=== PATIENT | female | born 1955 | race Caucasian/White ===

== ENCOUNTER 2017-08-16 02:24 | Observation (INO) ==
--- NOTE | 2017-08-16 02:43 | Emergency Department Note ---
Disposition Clinical Impression: Paroxysmal atrial fibrillation with RVR Disposition: Admitted As Inpatient Referrals: Talat Vick MD [Primary Care Provider] - Forms: ED Satisfaction Letter Time of Disposition: 03:58 Arrhythmia/Palpitations HPI - General Chief Complaint: ED Arrhythmia/Palpitations Stated Complaint: heart problem Time Seen by Provider: 08/16/17 02:30 Source: patient Mode of arrival: ambulatory Limitations: no limitations Nursing Notes Reviewed: Yes Vital Signs Reviewed: Yes - History of Present Illness HPI Narrative: Awoke suddenly from sleep just prior to admission with feeling of her racing fast and irregular, denies CP, one other episode years ago, converted on own Pt Subjective Complaint: "heart racing", palpitations, irregular heart beat 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 (ago): 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 Cardiovascular: Reports: palpitations. 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 Skin color is pink. Appears well hydrated, body habitus normal . Non toxic appearing. Head: Normocephalic and atraumatic. External ear exam normal Nose: Nose normal. Mouth/Throat: Uvula is midline, oropharynx is clear and moist and mucous membranes are normal. Eyes: Conjunctivae nl, extraocular motions and lids are normal. Pupils are equal , round, and reactive to light. Neck: Normal range of motion and phonation normal. Neck supple. Cardiovascular: Rapid rate. Irregularly irregular rhythm, no murmur .normal heart sounds. Pulmonary/Chest: No Respiratory distress. Respiratory Effort normal and breath sounds clear no wheezing. Abdominal: Soft. Normal appearance and bowel sounds are normal. no tenderness, no masses, no guarding, no rebound Musculoskeletal: Good distal pulses. Soft compartments. Brisk cap refill. Extremities: Normal range of motion.Intact peripheral pulses. No Edema. Extremity skin color nl, no calf tenderness or palpable cords. Neurological: Patient is alert and oriented without evidence of obvious motor deficits no facial droop. No speech deficit. Good strength 4 extremities. Skin: Skin is warm, dry and intact. color is normal, cap refill is quick Psychiatric: Patient has anxious mood and affect. Patient speech is normal and behavior is normal. Thought content normal. - General Limitations: no limitations General appearance: alert, in no apparent distress Course - Reevaluation(s) Reevaluation #1: Soon after the bolus of Cardiazem bolus and the infusion had been initiated, heart rate decreased to 80s but several very long pauses. Remains in atrial flutter. Infusion was discontinued. Patient feels well. No lightheadedness. Still feels the irregular beats but feels better because her heart rate is slower she says. Heart rate remains variable I disc case w/ dr Choi cardiology and he indicates that since she remains in a fib and has the pauses, pt requires admission for monitoring and conversion to sinus [facility] campus is full and pt is resistant to transfer to another facility. We discussed the possibility of admitting the patient here with anticoagulants and oral antiarrhythmics and monitoring with possibility of moving her to maintain campuses if necessary later in the day i disc plan w/ pt , she has no risk factors for anticoagulation. will disc w/ dr Hanley. Time: 03:40 Reevaluation #2: disc case w/ dr Vick who is willing to accept pt for admission here for monitoring and oral cardiazem. he suggests xarelto. she is feeling well and comfortable w/ that plan. Time: 03:59 Vital Signs Temperature 97.6 F 08/16/17 02:29 Pulse Rate 99 08/16/17 02:29 Respiratory Rate 18 08/16/17 02:29 Blood Pressure 144/92 08/16/17 02:29 O2 Sat by Pulse Oximetry 98 08/16/17 02:29 Temperature 97.6 F 08/16/17 02:34 Pulse Rate 77 08/16/17 03:17 Respiratory Rate 18 08/16/17 03:17 Blood Pressure 104/68 08/16/17 03:17 O2 Sat by Pulse Oximetry 93 08/16/17 03:17 Oxygen Delivery Oxygen Delivery Room Air Arrhythmia/Palpitations - Differential Diagnosis Differential Diagnosis: Likely: palpitations, anxiety, sinus tachycardia, artial arrhythmia, ventricular premature beats, supraventricular tachycardia, ventricular tachycardia, metabolic/electrolyte disturbance - Lab Data Result diagrams: 08/16/17 02:50 08/16/17 02:50 Lab Results 08/16/17 08/16/17 08/16/17 Range/Units 02:50 02:50 02:50 WBC 6.2 (4.3-11.1) K/mcL RBC 4.33 (3.82-4.97) M/mcL Hgb 13.4 (11.5-15.4) g/dL Hct 39.1 (35.3-44.9) % MCV 90.3 (83.0-100.0) fL MCH 30.9 (28.0-33.3) pg MCHC 34.3 (31.6-35.5) g/dL RDW 13.5 (11.5-14.5) % Plt Count 224 (140-400) K/mcL MPV 10.2 (9.4-12.4) fL Immature Gran % 0.2 (0-4) % Seg Neutrophils % 46.3 % Lymphocytes % 41.3 % Monocytes % 7.1 % Eosinophils % 4.5 % Basophils % 0.6 % Neutrophils # 2.9 (1.6-8.9) K/mcL Lymphocytes # 2.6 (0.6-4.6) K/mcL Monocytes # 0.4 (0.0-1.3) K/mcL Eosinophils # 0.3 (0.0-0.6) K/mcL Basophils # 0.0 (0.0-0.2) K/mcL PT 9.9 (9.4-12.1) Seconds INR 0.9 APTT 30.9 (26.0-36.0) Seconds D-Dimer 354 (0-500) ng/mLFEU Sodium 143 (136-145) mEq/L Potassium 3.8 (3.5-4.5) mEq/L Chloride 107 (98-109) mEq/L Carbon Dioxide 25 (19-29) mEq/L BUN 16 (7-20) mg/dL Creatinine 0.72 (0.57-1.11) mg/dL Est GFR ( Amer) > 60 (> 60) Est GFR (Non-Af Amer) > 60 (> 60) BUN/Creatinine Ratio 22 (6-26) Glucose 109 H (70-99) mg/dL Calculated Osmolality 298 (280-300) Calcium 9.1 (8.6-10.8) mg/dL Troponin I (0-0.03) ng/mL 08/16/17 Range/Units 02:50 WBC (4.3-11.1) K/mcL RBC (3.82-4.97) M/mcL Hgb (11.5-15.4) g/dL Hct (35.3-44.9) % MCV (83.0-100.0) fL MCH (28.0-33.3) pg MCHC (31.6-35.5) g/dL RDW (11.5-14.5) % Plt Count (140-400) K/mcL MPV (9.4-12.4) fL Immature Gran % (0-4) % Seg Neutrophils % % Lymphocytes % % Monocytes % % Eosinophils % % Basophils % % Neutrophils # (1.6-8.9) K/mcL Lymphocytes # (0.6-4.6) K/mcL Monocytes # (0.0-1.3) K/mcL Eosinophils # (0.0-0.6) K/mcL Basophils # (0.0-0.2) K/mcL PT (9.4-12.1) Seconds INR APTT (26.0-36.0) Seconds D-Dimer (0-500) ng/mLFEU Sodium (136-145) mEq/L Potassium (3.5-4.5) mEq/L Chloride (98-109) mEq/L Carbon Dioxide (19-29) mEq/L BUN (7-20) mg/dL Creatinine (0.57-1.11) mg/dL Est GFR ( Amer) (> 60) Est GFR (Non-Af Amer) (> 60) BUN/Creatinine Ratio (6-26) Glucose (70-99) mg/dL Calculated Osmolality (280-300) Calcium (8.6-10.8) mg/dL Troponin I 0.01 (0-0.03) ng/mL - EKG Data EKG attestation: Yes I reviewed and interpreted this EKG. EKG results narrative: Atrial fib with RVR rate of 1:[address] acute [address]-T wave changes.
[2017-08-16] MEDS ORDERED: dilTIAZem HCl 100 MG in D5% in Water 50 ML IVC SCH (02:45)
[2017-08-16 02:55] LABS: Basophils % 0.6 %; Eosinophils # 0.3 K/mcL (0.0-0.6); Eosinophils % 4.5 %; Hematocrit 39.1 % (35.3-44.9); Hemoglobin 13.4 g/dL (11.5-15.4); Immature Granulocytes % 0.2 % (0-4); Lymphocytes # 2.6 K/mcL (0.6-4.6); Lymphocytes % 41.3 %; Mean Corpuscular HGB Conc 34.3 g/dL (31.6-35.5); Mean Corpuscular Hemoglobin 30.9 pg (28.0-33.3); Mean Corpuscular Volume 90.3 fL (83.0-100.0); Mean Platelet Volume 10.2 fL (9.4-12.4); Monocytes # 0.4 K/mcL (0.0-1.3); Monocytes % 7.1 %; Neutrophils # 2.9 K/mcL (1.6-8.9); Platelet Count 224 K/mcL (140-400); Red Blood Count 4.33 M/mcL (3.82-4.97); Red Cell Distribution Width 13.5 % (11.5-14.5); Segmented Neutrophils % 46.3 %
[2017-08-16 02:59] LABS: INR 0.9; Prothrombin Time 9.9 Seconds (9.4-12.1)
[2017-08-16 03:02] LABS: Activated Partial Thrombo Time 30.9 Seconds (26.0-36.0)
[2017-08-16] MEDS: 0.9 % Sodium Chloride 1,000 ML IVC ONE (03:05)
[2017-08-16 03:08] LABS: BUN/Creatinine Ratio 22 (6-26); Blood Urea Nitrogen 16 mg/dL (7-20); Calcium 9.1 mg/dL (8.6-10.8); Carbon Dioxide 25 mEq/L (19-29); Chloride 107 mEq/L (98-109); Glucose 109 mg/dL (70-99); Osmolality,Calculated 298 (280-300); Potassium 3.8 mEq/L (3.5-4.5); Sodium 143 mEq/L (136-145); eGFR For African Americans > 60 (> 60); eGFR For Non-African Americans > 60 (> 60)
[2017-08-16] MEDS: *HR* Digoxin 0.5 MG/2 ML AMPUL IVP ONE (04:03)
[2017-08-16] MEDS ORDERED: Naloxone 0.4 MG/ML INJ IVP PRN (05:13)
[2017-08-16] MEDS ORDERED: Acetaminophen 325 MG TABLET PO PRN (05:13)
[2017-08-16] MEDS: *HR* Rivaroxaban 10 MG TABLET PO ONE (06:13)
[2017-08-16] MEDS: 0.9 % Sodium Chloride 1,000 ML IVC SCH (06:14)
[2017-08-16 08:57] LABS: Thyroid Stimulating Hormone 2.814 mcIU/mL (0.350-4.840)
--- NOTE | 2017-08-16 09:10 | Internal Med History&Physical ---
Date of Encounter: 08/16/17 Time of Encounter: 09:10 Assessment and Plan (1) Atrial fibrillation with RVR Status: Acute Patient admitted to an observation bed with A. fib with RVR, this is the second recurrence. She broke through on beta rei use. She is having no angina. Troponins are negative. Thyroid blood work ordered. She is now converted to normal sinus rhythm. We will continue the beta rei, continue the Cardizem by mouth, anticoagulate with Xarelto until we find if she is going in and out of atrial fibrillation. We will arrange cardiology evaluation with Dr. Choi (2) Hypertension Status: Chronic Hypertension is under good control. Continue her beta rei. Qualifiers: Hypertension type: essential hypertension Qualified Code(s): I10 - Essential (primary) hypertension Internal Medicine - H&P: HPI Chief complaint: I started getting a fast heart rate again that woke me up Admitted From: Emergency Dept Plans for Post Hospital Care: Home History of present illness: Ms. Richardson is a 61 year old female with a known history of hypertension and a previous episode of atrial fibrillation with RVR about 4 years ago. Medically she was converted back to sinus rhythm and has had no trouble since then. However, she awoke at approximately 2 AM with a fast heart rate "things did not feel right my chest" and she came to the emergency room. There she was found to have A. fib with RVR. She was placed on a Cardizem drip, however she had significant bradycardia and a drip was discontinued. The ER physician spoke to Dr. Choi who suggested oral Cardizem and to admit and monitor. They had no room available at [place]. She was admitted to [facility] an observation bed. This morning she is in normal sinus rhythm. She states she has no chest pain, tachycardia, lightheadedness, presyncopal symptoms. She states she feels fine right now. She has not had change in her diet recently. She limits her caffeine. She has had no angina or chest pain issues. She denies any new risk factors for recurrence of atrial fibrillation. She has been very compliant with her beta rei. Past Med Surg Social Fam HX - Past Medical History Medical history: asthma, atrial fibrillation, hypertension Psychiatric history: no psych history - Past Surgical History Surgical History: , cholecystectomy, sinus surgery - Social History Smoking Status: Never smoker Smokeless Tobacco Status: No Alcohol use: occasionally Drug use: none - Family History Mother Living Status: Still Living Hx Family Cardiac Disorders: Yes (TAVR) Father Living Status: Hx Family Cardiac Disorders: Yes (Patient after cardiac surgery) Internal Medicine - H&P: Meds Aspirin 81 mg PO DAILY 03/22/16 [History] Albuterol Sulfate [Albuterol Inhaler] 2 puff IH Q4HR PRN 04/25/17 [History] Metoprolol XL (24 HR) Succ [Toprol Xl] 25 mg PO DAILY 08/16/17 [History] 3 Allergy/AdvReac Type Severity Reaction Status Date / Time No Known Allergies Allergy Verified 08/16/17 02:45 - Constitutional Constitutional: as per HPI, no fever(s), no falls, no night sweats - EENT Eyes: no change in vision Ears: no ear pain Nose, mouth and throat: no neck mass, no sore throat - Cardiovascular Cardiovascular ROS IM: as per HPI, no dyspnea, no dyspnea on exertion, no edema , no syncope - Respiratory Respiratory: no cough, no dyspnea, no chest congestion - Gastrointestinal Gastrointestinal: no abdominal pain, no change in stool character - Genitourinary Genitourinary: no dysuria - Musculoskeletal Musculoskeletal ROS IM: no arthralgias, no joint swelling - Integumentary Integumentary IM: no new lesions, no rash - Neurological Neurological ROS: no dizziness, no focal weakness, no tremor(s) - Psychiatric Psychiatric: no difficulty concentrating - Constitutional Vitals: Temp Pulse Resp BP Pulse Ox 97.6 F 61 17 119/71 94 08/16/17 08:33 08/16/17 08:33 08/16/17 08:33 08/16/17 08:33 08/16/17 08:33 General appearance: Present: A&O X 3, no acute distress, answers questions appropriately - Eye Eye exam: Present: PERRL. Absent: scleral icterus Pupils: Present: PERRL - ENT ENT exam: Present: TM's normal bilaterally - Neck Neck exam general surgery: Absent: tenderness, nuchal rigidity, thyromegaly - Respiratory Respiratory exam: Present: CTAB - Cardiovascular Cardiovascular exam: Present: RRR, +S1, +S2. Absent: irregular rhythm, systolic murmur - GI/Abdominal GI/Abdominal exam: Present: soft. Absent: guarding, splenomegaly, tenderness - Extremities Exam Extremities exam: Absent: pedal edema, tenderness - Neurological Exam Neurological exam: Present: CN II-XII intact, oriented X3, no focal deficits - Psychiatric Psychiatric exam: Present: normal affect, normal mood - Skin Skin exam: Absent: rash Internal Med - H&P Results - Labs CBC & Chem 7: 08/16/17 02:50 08/16/17 02:50 Labs: Cardiac Enzymes 08/16/17 Range/Units 06:15 Troponin I 0.01 (0-0.03) ng/mL Labs have been reviewed. Serial troponins are negative so far. - EKG Data EKG comments: 08/20/17 21:17 EKG in the ER showed A. fib with RVR. Current EKG shows normal sinus rhythm without acute ischemic changes.
[2017-08-16] MEDS: Aspirin 81 MG TAB.CHEW PO SCH (09:41)
[2017-08-16] MEDS: Diltiazem CD (24hr) 180 MG CAPSULE PO SCH (09:41)
--- NOTE | 2017-08-16 10:15 | Discharge Summary ---
Date of Encounter: 08/16/17 Time of Encounter: 10:08 - Discharge Diagnosis (1) Atrial fibrillation with RVR Priority: Primary Status: Acute Comments: Patient was admitted with recurrence of A. fib with RVR. Her last occurrence was 3 or 4 years ago. This time she awoke at 2:00 in the morning with palpitations. Cardizem drip in the ER caused significant bradycardia and it was discontinued. The ER physician spoke with Dr. Choi and he suggested starting oral Cardizem. She did convert to normal sinus rhythm and was continued on oral Cardizem in addition to her beta rei. She was started on anticoagulation with Xarelto until we know that she is staying in normal rhythm. We will make a regimen for her to see Dr. Choi in follow-up. Prior to discharge she was ambulatory in the hallway, rhythm was normal sinus rhythm on the monitor and she had no chest pain. Her serial troponins were negative. (2) Hypertension Priority: Secondary Status: Chronic Comments: History of chronic hypertension and takes a beta rei chronically because of her prior atrial fibrillation and her history of hypertension. We continued the beta rei. Her blood pressure remained stable. Qualifiers: Hypertension type: essential hypertension Qualified Code(s): I10 - Essential (primary) hypertension - Discharge Medications Home Medications: Aspirin 81 mg PO DAILY 03/22/16 [History] Albuterol Sulfate [Albuterol Inhaler] 2 puff IH Q4HR PRN 04/25/17 [History] Metoprolol XL (24 HR) Succ [Toprol Xl] 25 mg PO DAILY 08/16/17 [History] Diltiazem CD (24hr) [Cardizem CD] 180 mg PO DAILY 08/20/17 [History] Rivaroxaban [Xarelto] 20 mg PO 08/20/17 [History] Allergies/Adverse Reactions: 3 Allergy/AdvReac Type Severity Reaction Status Date / Time No Known Allergies Allergy Verified 08/16/17 02:45 Procedures/tests Complete & Pending: Laboratory Tests 08/16/17 08/16/17 08/16/17 02:50 02:50 02:50 WBC 6.2 RBC 4.33 Hgb 13.4 Hct 39.1 MCV 90.3 MCH 30.9 MCHC 34.3 RDW 13.5 Plt Count 224 MPV 10.2 Immature Gran % 0.2 Seg Neutrophils % 46.3 Lymphocytes % 41.3 Monocytes % 7.1 Eosinophils % 4.5 Basophils % 0.6 Neutrophils # 2.9 Lymphocytes # 2.6 Monocytes # 0.4 Eosinophils # 0.3 Basophils # 0.0 PT 9.9 INR 0.9 APTT 30.9 D-Dimer 354 Sodium 143 Potassium 3.8 Chloride 107 Carbon Dioxide 25 BUN 16 Creatinine 0.72 Est GFR ( Amer) > 60 Est GFR (Non-Af Amer) > 60 BUN/Creatinine Ratio 22 Glucose 109 H Calculated Osmolality 298 Calcium 9.1 Troponin I TSH 2.814 08/16/17 08/16/17 08/16/17 02:50 06:15 11:12 WBC RBC Hgb Hct MCV MCH MCHC RDW Plt Count MPV Immature Gran % Seg Neutrophils % Lymphocytes % Monocytes % Eosinophils % Basophils % Neutrophils # Lymphocytes # Monocytes # Eosinophils # Basophils # PT INR APTT D-Dimer Sodium Potassium Chloride Carbon Dioxide BUN Creatinine Est GFR ( Amer) Est GFR (Non-Af Amer) BUN/Creatinine Ratio Glucose Calculated Osmolality Calcium Troponin I 0.01 0.01 0.00 TSH Date of admission: 08/16/17 04:16 Primary care physician: Talat Vick MD Discharging clinician: Talat Vick Anticipated date of discharge: 08/16/17 - Patient Status Disposition: Home, Self-Care Condition: Good Functional capacity at discharge: independent ambulation Overall status at discharge: patient is progressing back to baseline - Discharge Instructions Instructions: Diltiazem (By mouth), Rivaroxaban (By mouth), How to Take a Blood Pressure (DC), How to Take a Pulse (GEN) Follow Up With: Calvin Choi MD [Partnered Physician] - 09/06/17 10:20 am (follow up cardio appointment at [place]) Talat Vick MD [Primary Care Provider] - 08/23/17 1:30 pm (followup appointment) - Diet and Activity Activity: increase activity as tolerated Diet: advance to your usual diet Interval History: See the history and physical done the same day as the discharge Hospital course: Ms. Richardson is a 61 year old female admitted to observation bed with A. fib with RVR. Please see the above diagnoses and hospital course - Time Spent with Patient Total time spent providing and/or coordinating discharge services: - Constitutional Vitals: Temp Pulse Resp BP Pulse Ox 97.6 F 61 17 119/71 94 08/16/17 08:33 08/16/17 08:33 08/16/17 08:33 08/16/17 08:33 08/16/17 08:33 General appearance: Present: A&O X 3, no acute distress - Respiratory Respiratory exam: Present: CTAB - Cardiovascular Cardiovascular exam: Present: RRR, +S1, +S2. Absent: systolic murmur - Extremities Exam Extremities exam: Absent: pedal edema, tenderness
[2017-08-16] MEDS: Metoprolol XL (24 HR) Succ 25 MG TAB.ER.24H PO SCH (10:32)
[2017-08-16 14:06] VITALS: BP 135/72
--- NOTE | 2017-08-16 19:37 | Electrocardiograph Report ---
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
--- NOTE | 2017-08-16 19:38 | Electrocardiograph Report ---
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
[2017-08-17] MEDS ORDERED: *HR* Rivaroxaban 10 MG TABLET PO SCH (09:00)
== END 2017-08-16 13:00 | disposition home or self-care (01) ==
LOC: INPGRE 02:24 → EMEROOGRE 02:24 → INPGRE 05:38
PROVIDERS: ADMIT Family Medicine; ATTEND Family Medicine